=== PATIENT | male | born 1945 | race Caucasian/White ===

== ENCOUNTER 2018-07-01 09:55 | Day surgery (SDC) | payer MEDICARE ==
[2018-06-30 12:49] VITALS: BMI 31.7
[2018-07-01] MEDS ORDERED: Fentanyl 100 MCG/2 ML VIAL ONE (11:47)
--- NOTE | 2018-07-01 12:04 | RAD ---
CERVICAL SPINE FIVE VIEWS: INDICATIONS: Neck pain. FINDINGS: There is reversal of the normal cervical lordosis. There is severe multilevel disk degenerative face t osteoarthritic change. There is very slight anterior translation of C4 on C5 with flexion that red uces on neutral and extension positioning. Prevertebral soft tissues are normal appearing. The late ral masses are symmetric. The lung apices are clear. IMPRESSION: 1. Severe multilevel disk degenerative disease. 2. Moderate multilevel facet osteoarthritic change. 3. Mild anterior translation of C4 on C5 with flexion that reduces with neutral and extension positi oning. POS: [facility]
--- NOTE | 2018-07-01 12:42 | RAD ---
LUMBAR SPINE FOUR VIEWS: INDICATIONS: Back pain. COMPARISON: None. FINDINGS: There is advanced disk degenerative disease at L4-L5 and at L5-S1. There is vacuum disk phenomenon a t L5-S1, likely indicative of some underlying disk instability. There is some degenerative levoscoli osis at L4. There is slight retrolisthesis of L1 and L2 with no abnormal translational motion on fle xion and extension. There are vascular calcifications involving the abdominal aorta. IMPRESSION: 1. Moderate multilevel spondylosis of the lumbar spine. 2. Moderate retrolisthesis of L1 on L2. 3. No abnormal translational motion demonstrated. POS: [facility]
--- NOTE | 2018-07-01 16:25 | MRI ---
NONCONTRAST MRI LUMBAR SPINE: Date: 07/01/28 HISTORY: Lumbar radiculopathy, spinal stenosis of lumbar region. Unspecified whether neurogenic claudication p resent. COMPARISON: None available. FINDINGS: There is a subcentimeter increased T2-weighted signal intensity focus at the superior and inferior po le right kidney, as well as an additional subcentimeter focus of increased T2-weighted signal intensi ty in the mid portion of the left kidney, which may represent renal cysts that are difficult to bradley cterize. Remainder of the retroperitoneal structures have a normal MRI appearance. Conus medullaris is normal in appearance and terminates at the L1-2 level. There are a few scattered end plate degenerative changes, but there is otherwise normal signal intens ity demonstrated throughout the bone marrow. There are minimal disc osteophyte complexes at the T10-11, T11-12, and T12-L1 levels resulting in sli ght effacement of the ventral aspects of the thecal sac. Neural foramina are patent at the T11-12 and T12-L1 levels with mild bilateral neural foraminal narrowing at the T10-11 level. L1-2 Level: There is loss of intervertebral disc height. There is a broad based disc osteophyte complex resulting in mild effacement of the ventral aspect of the thecal sac. There is minimal encroachment on the lef t neural foramen. The right neural foramen is patent. L2-3 Level: There is loss of intervertebral disc height. There is a broad based disc osteophyte complex with cent ral disc protrusion. This narrows the thecal sac with mass effect on the anterior and central portion of the thecal sac. Neural foramina are patent aside from minimal mass effect on the inferior aspect of the left neural foramen. L3-4 Level: There is a mild broad based disc osteophyte complex with tiny left paracentral disc protrusion. This results in mild narrowing of the central spinal canal with effacement of the ventral aspect of the th ecal sac. Neural foramina are patent. L4-5 Level: There is loss of intervertebral disc height. Prominent facet degenerative changes are present at this level. There is a mild broad based disc osteophyte complex present with only slight effacement of th e ventral aspect of the thecal sac. There is minimal bilateral neural foraminal narrowing. L5-S1 Level: There is loss of intervertebral disc height with mild end plate degenerative changes. There is a broa d based disc osteophyte complex with tiny central disc protrusion. Central spinal canal is patent. Th ere is mild bilateral neural foraminal narrowing. Facet degenerative changes are present at this leve l. IMPRESSION: 1. Mild degenerative changes seen throughout the lumbar spine. 2. Too small to characterize hyperintense signal intensity lesions in the superior pole and inferior pole of right kidney, as well as mid portion of left kidney, which are difficult to characterize, bu t statistically likely represent cysts. POS: [facility]
--- NOTE | 2018-07-01 16:29 | MRI ---
MRI CERVICAL SPINE WITHOUT IV CONTRAST: 07/01/18 HISTORY: Cervical radiculopathy. Spinal stenosis. Neck pain and bilateral shoulder pain. COMPARISON: 06/17/17. FINDINGS: There is mild cerebral and cerebellar volume loss seen at the limited visualized base of the brain. Mild end plate degenerative changes are seen at a few levels of the cervical spine with Schmorl's nod e in the inferior end plate at C7 vertebral body. Which otherwise normal signal intensity seen throug hout the bone marrow. C2-3 level: There is mild facet hypertrophic changes greater on the left with mild uncinate process hypertrophy. However, there is no significant narrowing of the central spinal canal or neural foramina. C3-4 level: There is mild loss of intervertebral disc height with persistent fusion again seen involv ing the lateral articular facets on the left. Facet hypertrophic changes are present, greater on the left. Right neural foramen is patent, but there is mild left sided neural foraminal narrowing. C4-5 level: There is loss of intervertebral disc height with end plate degenerative changes. Broad ba sed disc osteophyte complex and facet hypertrophic changes are again visualized. There is severe righ t and moderate left sided neural foraminal narrowing. There are generalized narrowing of the central spinal canal with slight flattening of the anterior aspect of the spinal cord. Normal signal intensit y is present in the spinal cord at this level. C5-6 level: There is loss of the intervertebral disc heights with mild end plate degenerative changes . There is a broad based disc osteophyte complex with left paracentral disc protrusion and osteophyte formation which effaces the ventral subarachnoid space and also results in slight flattening of the anterior aspect of the spinal cord. Left neural foramen is patent, but there is mild to moderate righ t sided neural foraminal narrowing. The findings are similar to prior exam. C6-C7 level: There is loss of intervertebral disc height with mild end plate degenerative changes. Th ere is slight retrolisthesis of C6 on C7. There is mild narrowing of the central spinal canal with mo derate bilateral neural foraminal narrowing. C7-T1 level: There is loss of intervertebral disc height. There is a broad based disc osteophyte comp jose luis present. This results in slight effacement of the ventral aspect of the thecal sac without signif icant narrowing of the central spinal canal. There is moderate to severe bilateral neural foraminal n arrowing, greater on the right. At the T2-3 level, there is a broad based disc osteophyte complex narrowing the intervertebral disc s pace which effaces the ventral subarachnoid space and encroaches on the anterior aspect of the spinal cord, but the central spinal canal is not significantly narrowed. Neural foramina are patent at this level. IMPRESSION: Multilevel degenerative changes throughout the cervical spine not significantly changed from prior st udy in 2017 with moderate and severe degrees of neural foraminal narrowing as described above. POS: [facility]
--- NOTE | 2018-07-03 16:43 | EKG ---
Test Reason : PREOP Blood Pressure : / mmHG Vent. Rate : 060 BPM Atrial Rate : 060 BPM P-R Int : 170 ms QRS Dur : 072 ms QT Int : 406 ms P-R-T Axes : 075 066 040 degrees QTc Int : 406 ms Normal sinus rhythm Normal ECG Confirmed by MARYBETH SHANE ([id number]) on 07/03/2018 4:43:41 PM Referred By: MAIKEL Confirmed By:MARYBETH SHANE
== END 2018-07-01 14:45 | disposition home or self-care (01) ==
LOC: SDC/OP 09:55
PROVIDERS: ATTEND Physician Assistant Surgical
DX: M50.10 Cervical disc disorder with radiculopathy, unspecified cervical region (principal); M48.02 Spinal stenosis, cervical region; M47.26 Other spondylosis with radiculopathy, lumbar region; M48.061 Spinal stenosis, lumbar region without neurogenic claudication; Z79.1 Long term (current) use of non-steroidal anti-inflammatories (NSAID); Z79.899 Other long term (current) drug therapy
CPT/HCPCS: 72050; 72110; 72141; 72148; 93005; 93010; J3010

== ENCOUNTER 2018-12-16 08:48 | Outpatient (CLI) | payer MEDICARE ==
--- NOTE | 2018-12-16 09:42 | RAD ---
RIGHT SHOULDER 3 VIEWS: Date: 12/16/18 HISTORY: Shoulder pain. COMPARISON: Radiograph from 2017. FINDINGS: There is mild subacromial space narrowing. Advanced degenerative disc acromioclavicular joint. Enthes opathic changes of the posterior inferior glenoid. Ribs are unremarkable. IMPRESSION: 1. Findings suggesting rotator cuff arthropathy with subacromial narrowing. 2. Enthesopathic changes posterior inferior glenoid may be sequelae of labral tear. 3. Advanced degenerative disease of acromioclavicular joint. POS: [facility]
== END 2018-12-16 08:49 | disposition home or self-care (01) ==
LOC: RAD 08:48
PROVIDERS: ATTEND Nurse Practitioner Family
DX: M25.511 Pain in right shoulder (principal); M19.011 Primary osteoarthritis, right shoulder

== ENCOUNTER 2019-08-10 07:38 | Outpatient (CLI) | payer MEDICARE ==
[~2019-08-10 07:38] MED LIST: EPINEPHrine 1 MG/ML AMP ONE; Iopamidol 300 61% 50 ML VIAL FS ONE; Lidocaine 1% PF 10 ML AMP ONE
--- NOTE | 2019-08-10 10:05 | RAD ---
Arthrogram right shoulder HISTORY: Internal derangement. FINDINGS: After explaining the procedure and answering all questions, the anterior aspect of the [facility] t shoulder was prepped and draped in usual sterile fashion. Sterile technique, buffered local anesthesia, fluoroscopic guidance, and an anterior approach were used to carefully advance the tip of a 22-gauge spinal needle to the joint capsule at the level of the humeral head. A total volume of 8 cc liquid containing normal saline, 1% lidocaine, iodinated contrast, and small amount of epinephri ne were then carefully instilled into the joint capsule under fluoroscopic control. Contrast immediately extended into the subdeltoid bursa. Needle was removed. Patient tolerated the procedure w ell and was transferred to CT in good condition. Fluoroscopy time 0.3 minutes. IMPRESSION: Technically successful right shoulder arthrogram. Full-thickness rotator cuff tear.
--- NOTE | 2019-08-10 10:11 | CT ---
CT Upper Ext Rt W Con HISTORY: Right shoulder pain COMPARISON: Arthrogram done earlier today. FINDINGS: There is moderate arthrosis of the AC joint. There is a spur along the undersurface of the distal end of the clavicle. The infraspinatus tendon appears intact. There is a full-thickness supraspinatus tendon tear, the ten don is retracted by approximately 3.4 cm. The AP dimension of the tear is approximately 3.1 cm. There is moderate atrophy to the supraspinatus muscle. The subscapularis muscle and tendon are intact. Contrast adjacent to the subscapularis tendon is felt to be related to the injection. Minimal arthritic changes of the glenohumeral joint space are noted. IMPRESSION: Full-thickness supraspinatus tendon tear with mild to moderate supraspinatus muscle atrop hy.
== END 2019-08-10 07:39 | disposition home or self-care (01) ==
LOC: RAD 07:38
PROVIDERS: ATTEND Orthopaedic Surgery
DX: M75.41 Impingement syndrome of right shoulder (principal); M75.121 Complete rotator cuff tear or rupture of right shoulder, not specified as traumatic; M62.511 Muscle wasting and atrophy, not elsewhere classified, right shoulder
CPT/HCPCS: 23350; J0171; J2001; Q9967

== ENCOUNTER 2020-04-28 06:50 | Outpatient (CLI) | payer MEDICARE, OTHER ==
[2020-04-28 16:37] LABS: #Basophils 0.1 thou/uL (0.0-0.2); #Eosinphils 0.2 thou/uL (0.0-0.7); #Lymphocytes 2.4 thou/uL (1.20-3.40); #Monocytes 0.7 thou/uL (0.11-0.59); #Neutrophils 4.4 thou/uL (1.40-6.50); %Basophils 0.8 % (0.0-1.0); %Eosinophils 2.1 % (0.0-10.0); %Lymphocytes 31.3 % (21.0-51.0); %Monocytes 8.7 % (0.0-10.0); %Neutrophils 57.1 % (42.0-75.0); Hemoglobin 13.4 g/dL (14.0-18.0); Mean Corpuscular HGB CONC 33.5 g/dL (32.0-36.0); Mean Corpuscular Hemoglobin 33.8 pg (27.0-31.0); Mean Platelet Volume 7.4 fL (7.4-10.4); Platelet Count 191 thou/uL (130-400); RBC Distribution Width 12.8 % (11.5-14.5); Red Blood Cell (RBC) Count 3.98 mill/uL (4.70-6.10); White Blood Cell (WBC) Count 7.7 thou/uL (4.8-10.8)
[2020-04-28 17:04] LABS: Prothrombin Time 12.7 sec (12.0-14.7)
[2020-04-28 17:30] LABS: Anion Gap 12 mmol/L (10-20); BUN (Urea Nitrogen) 16 mg/dL (8.4-25.7); Calc. Creatinine Clearance 0 mL/min (70-130); Calcium 8.9 mg/dL (7.8-10.44); Carbon Dioxide 24 mmol/L (23-31); Chloride 105 mmol/L (98-107); Estimated GFR-MDRD 52; Glucose 158 mg/dL (83-110); Potassium 4.4 mmol/L (3.5-5.1); Sodium 137 mmol/L (136-145)
[2020-04-29 12:06] LABS: SARS-CoV-2 MS2 Positive; SARS-CoV-2 N Gene Negative; SARS-CoV-2 S Gene Negative; SARS-CoV-2 orf1ab Negative
== END 2020-04-28 06:51 | disposition home or self-care (01) ==
LOC: LABBT 06:50
PROVIDERS: ATTEND Orthopaedic Surgery
DX: Z01.812 Encounter for preprocedural laboratory examination (principal); Z11.59 Encounter for screening for other viral diseases; G56.03 Carpal tunnel syndrome, bilateral upper limbs
CPT/HCPCS: 80048; 85025; 85610; U0003; 87635

== ENCOUNTER 2020-05-03 06:45 | Day surgery (SDC) | payer MEDICARE ==
[2020-04-27 09:40] VITALS: BMI 29.5
[2020-05-03] MEDS ORDERED: Lidocaine 1% w/Epinephrine 1:100K 20 ML VIAL ONE (09:33)
[2020-05-03] MEDS ORDERED: Fentanyl 100 MCG/2 ML VIAL ONE (09:34)
[2020-05-03] MEDS ORDERED: Ketamine 50 MG/ML (10ML VIAL) ONE (09:34)
[2020-05-03] MEDS ORDERED: Midazolam HCl 2 mg/2 ml Vial ONE (09:34)
[2020-05-03] MEDS ORDERED: Propofol 500 MG/50 ML VIAL ONE (09:34)
--- NOTE | 2020-05-03 22:17 | OP ---
DATE OF PROCEDURE: 05/03/2020 PREOPERATIVE DIAGNOSIS: Left carpal tunnel syndrome. POSTOPERATIVE DIAGNOSIS: Left carpal tunnel syndrome. PROCEDURE PERFORMED: Left open carpal tunnel release. [employer]WILL AMBASSADOR: None. ANESTHESIA: The patient received a TIVA with 10 mL of 1% lidocaine with epinephrine. ESTIMATED BLOOD LOSS: Less than 50 mL. TOURNIQUET TIME: 6 minutes. ANTIBIOTICS: Ancef 2 g. COMPLICATIONS: None. HISTORY OF PRESENT ILLNESS: This is a 74-year-old male who presents for carpal tunnel syndrome history of positive nerve conduction studies. I discussed with the patient risks and benefits of a left carpal open release to include pain, scar, bleeding, infection, damage to vital structures, wound healing, need for further surgeries, loss of life or limb, revision surgery, understood the risks and benefits and elected to proceed. DESCRIPTION OF PROCEDURE: Time-out was performed designating the patient's left upper extremity as the operative site based on site, consents, and marking. After time-out, the patient's left upper extremity was prepped and draped in a sterile fashion, did a wheal and in line with incision, made incision down on the radial border of the 4th ray proximal kaplans cardinal line through the skin, bluntly dissected and came down on the fascia. It was transected coming down on the palmar fascia, dissected distally, ensured that I was underneath the palmaris brevis, transverse carpal ligament, which I released and looked distally ensured that I took some of the palmar fascia as well as resected the entirety of transverse carpal ligament and we released the nerve. I walked the tourniquet up for 60 minutes, controlled bleeding, sewed the skin with 4-0 nylon, injected lidocaine, 10 mL in the incision line, and placed a soft tissue dressing. The patient will be discharged home. Follow up with me in 10 to 14 days for the wound care. Job ID: [id number] [facility]
== END 2020-05-03 11:10 | disposition home or self-care (01) ==
LOC: SDC 06:45
PROVIDERS: ATTEND Orthopaedic Surgery
PROC: 01N50ZZ Release Median Nerve, Open Approach (ICD-10-PCS; principal; 2020-05-03)
DX: G56.03 Carpal tunnel syndrome, bilateral upper limbs (principal); E78.5 Hyperlipidemia, unspecified; I10 Essential (primary) hypertension; K21.9 Gastro-esophageal reflux disease without esophagitis; M19.90 Unspecified osteoarthritis, unspecified site; Z79.84 Long term (current) use of oral hypoglycemic drugs; Z79.899 Other long term (current) drug therapy
CPT/HCPCS: J0690; J2250; J2704; J3010

== ENCOUNTER 2020-06-07 16:59 | Emergency (ER) | payer MEDICARE ==
[2020-06-07] MEDS ORDERED: CEFAZOLIN 1 GM VIAL ONE (17:38)
[2020-06-07] MEDS ORDERED: Adacel (T-DAP) 0.5 ML SYRINGE ONE (17:38)
[2020-06-07] MEDS ORDERED: Morphine 4 MG/ML VIAL ONE (17:38)
--- NOTE | 2020-06-07 18:01 | RAD ---
XR Shoulder Rt 3 View STANDARD HISTORY: Fall, right shoulder pain FINDINGS: No fracture or dislocation is identified. There are degenerative changes in the acromioclavicular benjamin nt.
--- NOTE | 2020-06-07 18:04 | RAD ---
XR Tib Fib Rt Leg 2 View HISTORY: Injury, right leg pain FINDINGS: The right tibia and fibula appear intact. Soft tissue air is seen. A few tiny faint radio-opaque dens ities may represent foreign bodies.
--- NOTE | 2020-06-07 18:05 | RAD ---
RIGHT WRIST 3 VIEWS: HISTORY: Right wrist pain, injury, and upright FINDINGS: Degenerative changes are present. No acute fracture or dislocation is identified. There is a small ra diopaque density in the dorsal aspect of the soft tissues of the first webspace, suspicious for a foreign body. If symptoms do not improve, a follow-up exam should be obtained in 7-10 days.
[2020-06-07] MEDS ORDERED: Lidocaine 1% w/Epinephrine 1:100K 20 ML VIAL ONE (18:57)
[2020-06-07] MEDS ORDERED: Bacitracin 1 PK ONE (20:24)
== END 2020-06-07 21:33 | disposition home or self-care (01) ==
LOC: ERS 16:59
DX: S91.051A Open bite, right ankle, initial encounter (principal); S61.451A Open bite of right hand, initial encounter; S91.011A Laceration without foreign body, right ankle, initial encounter; S61.411A Laceration without foreign body of right hand, initial encounter; E11.9 Type 2 diabetes mellitus without complications; E78.5 Hyperlipidemia, unspecified; I10 Essential (primary) hypertension; W54.0XXA Bitten by dog, initial encounter
CPT/HCPCS: 12005; 12032; 90471; 90715; 96365; 96375; J0690; J2270

== ENCOUNTER 2024-01-17 09:46 | Outpatient (CLI) | payer MEDICARE ==
[2024-01-17 11:49] LABS: #Basophils 0.1 10x3/uL (0.0-0.2); #Eosinphils 0.3 10x3/uL (0.0-0.5); #Monocytes 0.9 10x3/uL (0.0-1.1); #Neutrophils 3.8 10x3/uL (1.5-8.4); %Basophils 0.9 % (0.0-2.0); %Eosinophils 3.8 % (0.0-6.0); %Neutrophils 58.1 % (40.0-75.0); Hematocrit 37.1 % (38.8-50.0); Hemoglobin 12.3 g/dL (13.5-17.5); Mean Corpuscular HGB CONC 33.2 g/dL (32.0-36.0); Mean Corpuscular Volume 96.6 fl (81.2-95.1); Mean Platelet Volume 9.9 fl (7.4-10.4); Platelet Count 201 10x3/uL (150-450); RBC Distribution Width 14.6 % (11.5-14.5); Red Blood Cell (RBC) Count 3.84 10x6/uL (4.32-5.72); White Blood Cell (WBC) Count 6.6 10x3/uL (3.5-10.5)
[2024-01-17 12:07] LABS: Prothrombin Time 10.3 sec (9.5-12.1)
[2024-01-17 13:20] LABS: Anion Gap 14 mmol/L (10-20); BUN (Urea Nitrogen) 14 mg/dL (8.4-25.7); Calc. Creatinine Clearance 0 mL/min (70-130); Calcium 8.8 mg/dL (7.8-10.44); Carbon Dioxide 26 mmol/L (23-31); Chloride 104 mmol/L (98-107); Estimated GFR 58; Glucose 216 mg/dL (83-110); Potassium 4.3 mmol/L (3.5-5.1); Sodium 140 mmol/L (136-145)
== END 2024-01-17 09:47 | disposition home or self-care (01) ==
LOC: LABBT 09:46
PROVIDERS: ATTEND Orthopaedic Surgery
DX: Z01.818 Encounter for other preprocedural examination (principal); M12.9 Arthropathy, unspecified
CPT/HCPCS: 80048; 85025; 85610; 93005; 93010

== ENCOUNTER 2024-01-23 05:47 | Inpatient (IN) | payer MEDICARE ==
[2024-01-17 10:33] VITALS: BMI 30.2
[2024-01-23] MEDS ORDERED: PROPOFOL 0 ML ONE (06:15)
[2024-01-23] MEDS ORDERED: Midazolam HCl 2 mg/2 ml Vial ONE (06:15)
[2024-01-23] MEDS ORDERED: fentaNYL PF 100 MCG/2 ML SYRINGE ONE (06:15)
[2024-01-23] MEDS ORDERED: MINERAL OIL/WHITE PETROLATUM 3.5 GM TUBE ONE (06:21)
[2024-01-23 06:42] LABS: #Basophils 0.1 thou/uL (0.0-0.2); #Eosinphils 0.2 thou/uL (0.0-0.7); #Monocytes 1.8 thou/uL (0.11-0.59); #Neutrophils 9.9 thou/uL (1.40-6.50); %Basophils 0.4 % (0.0-1.0); %Eosinophils 1.1 % (0.0-10.0); %Lymphocytes 16.2 % (21.0-51.0); %Monocytes 12.4 % (0.0-10.0); %Neutrophils 69.5 % (42.0-75.0); Hematocrit 36.4 % (42.0-52.0); Mean Corpuscular Hemoglobin 32.5 pg (27.0-31.0); Mean Corpuscular Volume 98.6 fl (78.0-98.0); Mean Platelet Volume 9.4 fL (7.4-10.4); Platelet Count 215 10x3/uL (130-400); RBC Distribution Width 14.3 % (11.5-14.5); Red Blood Cell (RBC) Count 3.69 mill/uL (4.70-6.10); White Blood Cell (WBC) Count 14.2 10x3/uL (4.8-10.8)
[2024-01-23] MEDS ORDERED: Bisacodyl 10 MG SUPP PR PRN (07:45)
[2024-01-23] MEDS ORDERED: Promethazine HCl 25 MG/ML VIAL IM PRN (07:45)
[2024-01-23] MEDS ORDERED: Ondansetron PF 4 MG/2 ML Vial SLOW IVP PRN (07:45)
[2024-01-23] MEDS ORDERED: Acetaminophen 325 MG TAB PO PRN (07:45)
[2024-01-23] MEDS ORDERED: traMADol HCl 50 MG TAB PO PRN ×2 (07:45)
[2024-01-23] MEDS ORDERED: Milk Of Magnesia 30 ML UDCUP PO PRN (07:45)
[2024-01-23] MEDS ORDERED: Sodium Chloride 0.9% 100 ML ONE (07:52)
[2024-01-23] MEDS ORDERED: cefTRIAXone (ROCEPHIN) 2 GM VIAL ONE (07:52)
[2024-01-23] MEDS ORDERED: Morphine 2 MG/ML VIAL ONE (07:52)
[2024-01-23] MEDS: Morphine 2 MG/ML VIAL SLOW IVP PRN (08:06)
[2024-01-23] MEDS: cefTRIAXone\\ROCEPHIN 2 GM in Sodium Chloride 0.9% 100 ML IVPB SCH (08:11)
[2024-01-23] MEDS: Aspirin 81 mg Enteric Coated Tablet PO SCH (11:07)
[2024-01-23] MEDS: HYDROcodone/Acetaminophen 5/325 mg Tablet PO PRN (11:46)
[2024-01-23] MEDS: Rosuvastatin 10 MG TAB PO SCH (20:19)
[2024-01-23] MEDS: traZODone HCl 50 MG TAB PO SCH (20:19)
[2024-01-23] MEDS: Icosapent Ethyl 1 GM CAPSULE PO SCH (20:19)
[2024-01-23] MEDS: traMADol HCl 50 MG TAB PO SCH (20:20)
[2024-01-23] MEDS: metFORMIN 500 MG TAB PO SCH (20:20)
[2024-01-23] MEDS: Gabapentin 300 MG CAP PO SCH (20:20)
[2024-01-23] MEDS: Diazepam 5 MG TAB PO SCH (20:58)
[2024-01-24 06:22] LABS: #Basophils 0.1 thou/uL (0.0-0.2); #Eosinphils 0.1 thou/uL (0.0-0.7); #Monocytes 1.7 thou/uL (0.11-0.59); %Basophils 0.5 % (0.0-1.0); %Eosinophils 1.1 % (0.0-10.0); %Lymphocytes 16.9 % (21.0-51.0); %Monocytes 12.7 % (0.0-10.0); %Neutrophils 68.6 % (42.0-75.0); Hematocrit 35.9 % (42.0-52.0); Hemoglobin 11.9 g/dL (14.0-18.0); Mean Corpuscular HGB CONC 33.1 g/dL (32.0-36.0); Mean Corpuscular Hemoglobin 32.4 pg (27.0-31.0); Mean Corpuscular Volume 97.8 fl (78.0-98.0); Mean Platelet Volume 9.4 fL (7.4-10.4); Platelet Count 191 10x3/uL (130-400); RBC Distribution Width 14.6 % (11.5-14.5); Red Blood Cell (RBC) Count 3.67 mill/uL (4.70-6.10); White Blood Cell (WBC) Count 13.1 10x3/uL (4.8-10.8)
[2024-01-24] MEDS: Multivit, Therapeutic 1 TAB PO SCH (09:20)
[2024-01-24] MEDS: Lisinopril 20 MG TAB PO SCH (09:20)
[2024-01-24] MEDS: Sulfameth/Trimethoprim DS 800-160mg TAB PO SCH (09:20)
[2024-01-24] MEDS: Amlodipine 5 MG TAB PO SCH (09:23)
[2024-01-24 11:32] VITALS: BP 167/74; TEMP 99.3
== END 2024-01-24 11:55 | disposition home or self-care (01) | DRG 603 ==
LOC: SDC 05:47 → SURG B 07:07
PROVIDERS: ADMIT Orthopaedic Surgery; ATTEND Orthopaedic Surgery
DX: L03.113 Cellulitis of right upper limb (principal); K21.9 Gastro-esophageal reflux disease without esophagitis; M70.21 Olecranon bursitis, right elbow; E78.5 Hyperlipidemia, unspecified; I10 Essential (primary) hypertension; E11.9 Type 2 diabetes mellitus without complications; I48.91 Unspecified atrial fibrillation; N40.0 Benign prostatic hyperplasia without lower urinary tract symptoms; G47.33 Obstructive sleep apnea (adult) (pediatric); Z53.8 Procedure and treatment not carried out for other reasons; Z79.899 Other long term (current) drug therapy
CPT/HCPCS: 36415; 85025; 86140; J0696; J2250; J2272; J2704; J3490

== ENCOUNTER 2024-04-24 15:33 | Outpatient (CLI) | payer MEDICARE | END 2024-04-24 15:34 | disposition home or self-care (01) | LOC: BICRAD 15:33 | PROVIDERS: ATTEND Family Medicine | DX: M25.421 Effusion, right elbow (principal); M79.89 Other specified soft tissue disorders ==